=== PATIENT | female | born 1960 | race Caucasian/White ===

== ENCOUNTER 2025-02-20 06:05 | Day surgery (SDC) | payer OTHER ==
[~2025-02-20] VITALS: Ht 162.6 cm; Wt 96.3 kg
[2025-02-20] VITALS (12 sets, daily range): BP systolic 91–139; BP diastolic 52–70
[~2025-02-20 06:05] MED LIST: Adderall Xr 5 MG5 MG PO; BUDESONIDE EC3 M1; BUPR150ER PO; Budeprion Xl300 MG PO; CULTURELLE KID1 EA13; LOSA25 PO; MULTI-VITAMIN1 EAC2 PO; Nicoderm Cq1 EACH TOP; SERT100 PO; SIMV40 PO; Vitamin B Comple1 EA PO; XYZAL5 MG PO; ZESTRIL40 M1 PO; ZYRTEC-D ER 51 EACH PO; [UNRECOGNIZED DRUG - MIXTURE]; [UNRECOGNIZED DRUG - OTHER] PO
[2025-02-20] MEDS ORDERED: Chlorhexidine Mouth Care 15 ML UDC MT SCH (06:15)
[2025-02-20] MEDS ORDERED: Ropivacaine 0.5% HCl/Pf 123.125 MG,EPINEPHrine HCL 0.25 MG,Ketorolac Tromethamine 15 MG... INFIL SCH (06:15)
[2025-02-20] MEDS ORDERED: CeFAZolin Sodium 2,000 MG in NS 100 ML IV SCH ×2 (06:15→15:30)
--- NOTE | 2025-02-20 06:24 | NUR ---
PATIENT TRANSFERED TO DAY SURGERY VIA W/C. ACCOMPANIED BY AUNT, MOUNIKA, WHO LEFT FOR HOME FROM [facility].
[2025-02-20] MEDS ORDERED: Tranexamic Acid 100 ML IV SCH (06:35)
[2025-02-20] MEDS ORDERED: Amlodipine Bes2.5 MG PO (06:41)
[2025-02-20] MEDS ORDERED: MUPIROCIN111 TOP (06:42)
[2025-02-20] MEDS ORDERED: Midazolam HCl 1MG / ML 2ML Vial ONE (07:32)
[2025-02-20] MEDS ORDERED: HYDROmorphone HCl/Pf 1MG SYR IV PRN ×3 (07:35→08:05)
[2025-02-20] MEDS ORDERED: Ondansetron HCl 2 MG / ML 2ML Vial IV PRN ×2 (07:35→08:00)
[2025-02-20] MEDS ORDERED: Midazolam HCl 1MG / ML 2ML Vial IV ONE (07:35)
[2025-02-20] MEDS ORDERED: FentaNYL Citrate 50 MCG/ML 2 ML Injection IV PRN ×2 (07:35→07:40)
[2025-02-20] MEDS ORDERED: Albuterol 2.5 MG/3 ML VIAL INH PRN (07:40)
[2025-02-20] MEDS ORDERED: Prochlorperazine Edisylate 10 mg Vial IV PRN (08:30)
[2025-02-20] MEDS ORDERED: Pseudoephedrine HCl 120 MG TabCR PO PRN (08:30)
[2025-02-20] MEDS ORDERED: Magnesium Hydroxide Conc 10 ML UDC PO PRN (08:30)
[2025-02-20] MEDS ORDERED: Metoclopramide HCl 5MG / ML 2ML Vial IV PRN (08:30)
[2025-02-20] MEDS ORDERED: Ketorolac Tromethamine 30mg Vial ONE (09:38)
--- NOTE | 2025-02-20 10:17 | NUR ---
ARRIVAL TO SURGICAL UNIT VIA HOSPITAL BED. DROWSY/SLEEPING BUT OPENS EYES, SMILES, & ANSWERS ?s APPROP. ASSESSMENT CHARTED. WILL OFFER SNACKS & DRINKS WHEN BECOMES MORE ALERT.
[2025-02-20] MEDS ORDERED: Ketorolac Tromethamine 15mg Vial IV SCH (12:00)
[2025-02-20] MEDS ORDERED: ASPI81CH PO (14:35)
[2025-02-20] MEDS ORDERED: ACET500 PO (14:35)
[2025-02-20] MEDS ORDERED: OXYC5 PO (14:36)
[2025-02-20] MEDS ORDERED: DOCU100 PO (14:36)
--- NOTE | 2025-02-20 16:50 | NUR ---
DISCHARGE PT HAS WORKED w/ THERAPY. PAIN WELL CONTROLLED. EATING, DRINKING, & VOIDING WELL. POLAR PACK SENT w/ PT. ESCORTED OUT VIA W/C AFTER RIDE ARRIVED.
[2025-02-21] MEDS ORDERED: DEXTROAMPHETAMINE PO SCH (09:00)
[2025-02-21] MEDS ORDERED: AMPHETAMINE PO SCH (09:00)
== END 2025-02-20 17:57 | disposition home or self-care (01) ==
LOC: ORSCMMR 06:05 → ORD 07:30 → SURS 10:07 → ORSCMMR 17:57
PROVIDERS: Orthopaedic Surgery
PROC: 0SRB0JA Replacement of Left Hip Joint with Synthetic Substitute, Uncemented, Open Approach (ICD-10-PCS; principal; 2025-02-20 07:30)
DX: M16.12 Unilateral primary osteoarthritis, left hip (principal); I10 Essential (primary) hypertension; G47.33 Obstructive sleep apnea (adult) (pediatric); K21.9 Gastro-esophageal reflux disease without esophagitis; Z79.899 Other long term (current) drug therapy; E78.5 Hyperlipidemia, unspecified; E03.9 Hypothyroidism, unspecified; F41.8 Other specified anxiety disorders; F90.9 Attention-deficit hyperactivity disorder, unspecified type; Z87.891 Personal history of nicotine dependence
CPT/HCPCS: 72170; 97116; 97161; 97530; A9270; C1776; J0165; J0690; J0735; J1885; J2250; J2704; J2795; J3373; J7050; J7120

== ENCOUNTER → 2025-02-26 | Outpatient (CLI) | payer OTHER ==
[~2025-02-26] MED LIST changes: +ACET500 PO; +ASPI81CH PO; +Amlodipine Bes2.5 MG PO; +DOCU100 PO; +MUPIROCIN111 TOP; +OXYC5 PO
== END | disposition home or self-care (01) ==
LOC: LAB SHORT 13:12 → LAB 13:12
DX: T81.89XA Other complications of procedures, not elsewhere classified, initial encounter (principal)
CPT/HCPCS: 87070; 87205